=== PATIENT | female | born 1960 | race Two or more races ===

== ENCOUNTER 2017-10-10 13:48 | Emergency (ER) | payer OTHER ==
[2017-10-10 14:10] LABS: PLATELET COUNT 186 10^3/uL (150-400)
--- NOTE | 2017-10-10 14:12 | CPEKG ---
Heart Rate: 69 RR Interval: 870 P-R Interval: 136 QRSD Interval: 96 QT Interval: 400 QTC Interval: 429 P [place]: 75 QRS [place]: 77 T [place]: 64 EKG Severity - BORDERLINE ECG - EKG Impression: SINUS RHYTHM EKG Impression: PROBABLE LEFT ATRIAL ABNORMALITY Electronically Signed By: Ward Valle 10-Oct-2017 14:20:10
--- NOTE | 2017-10-10 14:13 | EDPHY ---
H & P Time Seen by Provider: 10/10/17 14:12 HPI/ROS: CHIEF COMPLAINT: Passed out HISTORY OF PRESENT ILLNESS: Patient has had 3 previous episodes of syncope, 2 after a meal and this was very similar. She had just finished eating in the plates just been cleared at 1:05 p.m. When she said she got lightheaded and uncomfortable and felt like she was going to pass out. She remembers lying down next and then waking up with her over her. He says she was out for around 10 min for she would respond to cold water and stimulation but was not spontaneously verbal. No seizure activity and no trauma. Right now she just feels like her head is"heavy"feels tired but does not have a headache or chest pain or shortness of breath or any other symptoms. She pretty much feels back to normal. REVIEW OF SYSTEMS: Eye: no change in vision ENT: no sore throat Cardiac: No chest pain Pulmonary: no cough or SOB or hemoptysis Abdomen: no vomiting, diarrhea, abdominal pain Musculoskeletal: no back pain or leg swelling Skin: no rash Neuro: no headache Constitutional: no fever : no urinary symptoms A comprehensive 10 point review of systems is otherwise negative aside from elements mentioned in the history of present illness. PAST MEDICAL HISTORY: Hysterectomy and osteoporosis Social history: Visiting from [place] General Appearance: Alert and conversant, cooperative. Eyes: No scleral icterus. ENT, Mouth: Normal mucous membranes. No tongue laceration or abrasion Respiratory: Normal respiratory effort, breath sounds equal, lungs are clear to auscultation. Cardiovascular: Regular rate and rhythm. Gastrointestinal: Abdomen is soft and non tender. Neurological: Alert, face symmetric, normal motor and sensory in extremities. Skin: Warm and dry, no rashes. Musculoskeletal: No peripheral edema. No calf tenderness. Psychiatric: Not agitated. Emergency Department course/MDM: Most likely vasovagal syncope. D-dimer done because of travel by air from [place] on September 02. She does have a history of previous vasovagal syncope and this most likely would be the same thing. 1510: Labs reviewed, electrolytes normal, D-dimer negative. Discharge home. Smoking Status: Never smoked Constitutional: Initial Vital Signs Temperature (C) 36.5 C 10/10/17 13:48 Heart Rate 71 10/10/17 13:48 Respiratory Rate 18 10/10/17 13:48 Blood Pressure 120/71 10/10/17 13:48 O2 Sat (%) 94 10/10/17 13:48 O2 Delivery Mode Room Air Allergies/Adverse Reactions: No Known Allergies Allergy (Unverified 10/10/17 13:57) Home Medications: Medication Instructions Recorded [facility] 10/10/17 Medical Decision Making - Diagnostics EKG Interpretation: 12-lead EKG interpreted by me; official reading is in trace master. My interpretation is sinus rhythm with left atrial abnormality rate 69 Differential Diagnosis: Differential diagnosis considered for syncope including but not limited to vasovagal syncope, arrhythmia, dehydration, and blood loss. - Data Points Laboratory Results: Laboratory Results 10/10/17 13:48 10/10/17 13:48 10/10/17 10/10/17 10/10/17 14:13 14:10 13:48 WBC RBC Hgb Hct MCV MCH MCHC RDW Plt Count MPV Neut % (Auto) Lymph % (Auto) [place] % (Auto) Eos % (Auto) Baso % (Auto) Nucleat RBC Rel Count Absolute Neuts (auto) Absolute Lymphs (auto) Absolute Monos (auto) Absolute Eos (auto) Absolute Basos (auto) Absolute Nucleated RBC Immature Gran % Immature Gran # D-Dimer < 0.27 ug/mLFEU ug/mLFEU (0.00-0.50) Sodium 139 mEq/L mEq/L (135-145) Potassium 3.9 mEq/L mEq/L (3.3-5.0) Chloride 100 mEq/L mEq/L (97-110) Carbon Dioxide 29 mEq/l mEq/l (22-31) Anion Gap 10 mEq/L mEq/L (8-16) BUN 19 mg/dL mg/dL (7-23) Creatinine 0.7 mg/dL mg/dL (0.6-1.0) Estimated GFR > 60 Glucose 115 mg/dL H mg/dL (70-100) Calcium 10.0 mg/dL mg/dL (8.5-10.4) POC Troponin I 0.00 ng/mL ng/mL (0.00-0.08) 10/10/17 13:48 WBC 5.47 10^3/uL 10^3/uL (3.80-9.50) RBC 4.76 10^6/uL 10^6/uL (4.18-5.33) Hgb 13.1 g/dL g/dL (12.6-16.3) Hct 40.4 % % (38.0-47.0) MCV 84.9 fL fL (81.5-99.8) MCH 27.5 pg L pg (27.9-34.1) MCHC 32.4 g/dL g/dL (32.4-36.7) RDW 14.0 % % (11.5-15.2) Plt Count 186 10^3/uL 10^3/uL (150-400) MPV 11.8 fL H fL (8.7-11.7) Neut % (Auto) 44.7 % % (39.3-74.2) Lymph % (Auto) 41.3 % % (15.0-45.0) [place] % (Auto) 6.4 % % (4.5-13.0) Eos % (Auto) 7.1 % % (0.6-7.6) Baso % (Auto) 0.5 % % (0.3-1.7) Nucleat RBC Rel Count 0.0 % % (0.0-0.2) Absolute Neuts (auto) 2.44 10^3/uL 10^3/uL (1.70-6.50) Absolute Lymphs (auto) 2.26 10^3/uL 10^3/uL (1.00-3.00) Absolute Monos (auto) 0.35 10^3/uL 10^3/uL (0.30-0.80) Absolute Eos (auto) 0.39 10^3/uL 10^3/uL (0.03-0.40) Absolute Basos (auto) 0.03 10^3/uL 10^3/uL (0.02-0.10) Absolute Nucleated RBC 0.00 10^3/uL 10^3/uL (0-0.01) Immature Gran % 0.0 % % (0.0-1.1) Immature Gran # 0.00 10^3/uL 10^3/uL (0.00-0.10) D-Dimer Sodium Potassium Chloride Carbon Dioxide Anion Gap BUN Creatinine Estimated GFR Glucose Calcium POC Troponin I Point of Care Test Results: Chemistry 10/10/17 14:10 POC Troponin I 0.00 ng/mL ng/mL (0.00-0.08) Departure - Departure Disposition: Home, Routine, Self-Care Clinical Impression: Vasovagal syncope Condition: Good Instructions: Syncope (ED) Referrals: Marguerite Schaffer DO [Doctor of Osteopathy] - As per Instructions (conservation policy analyst PCP for unassigned ED patients)
[2017-10-10 15:21] VITALS: BP 130/85
== END 2017-10-10 15:19 | disposition home or self-care (01) ==
DX: R55 Syncope and collapse (principal)
CPT/HCPCS: 84484-PO